=== PATIENT | male | born 1980 | race Caucasian/White ===

== ENCOUNTER 2017-03-17 23:59 | Emergency (ER) | payer OTHER ==
[~2017-03-17] VITALS: Ht 182.9 cm; Wt 74.8 kg
[~2017-03-17 23:59] MED LIST: AMOX-559 PO; ASPI-1471 PO; CEPH500C24 PO; DIPH-740 PO; FAMO-129 PO; IBUP800T37 PO; LEVO5TAB28 PO; MULT-1097 PO; POTA20TA94 PO; PRED20TA6 PO; TRAM-420 PO; [UNRECOGNIZED DRUG - CODE] PO; [UNRECOGNIZED DRUG - REMARK]; vit d
--- NOTE | 2017-03-18 00:04 | ER Report ---
History and Physical Time Seen By MD: 00:04 HPI/ROS CHIEF COMPLAINT: Sharp chest pain HISTORY OF PRESENT ILLNESS: 36-year-old male presents with several hours of sharp chest pain aggravated by deep inspiration. Patient reports he's recovering from a cold for the last week. He's had no high fevers. He has a dry cough. He's taking nutritional supplements. Patient has no shortness of breath or diaphoresis. Patient denies nausea. Patient denies significant past medical history. REVIEW OF SYSTEMS: Respiratory: No cough, no dyspnea. Cardiovascular: As above Gastrointestinal: No vomiting, no abdominal pain. Musculoskeletal: No back pain. Allergies: Coded Allergies: Quinolones (Verified Allergy, Intermediate, CHEST PAIN, 03/18/17) tolnaftate (Verified Allergy, Mild, RASH, 03/18/17) Sulfa (Sulfonamide Antibiotics) (Verified Adverse Reaction, Unknown, CHEST PAIN, 03/18/17) Home Meds Reported Medications Cholecalciferol (Vitamin D3) (VITAMIN D3) 400 Unit Tablet, 800 UNIT PO DAILY 03/18/17 Flaxseed Oil (FLAX SEED OIL) 1,000 Mg Capsule, 1000 MG PO DAILY, CAPSULE 03/18/17 [Wobenzym N] No Conflict Check, 2 TAB PO BID 03/18/17 Discontinued Reported Medications Aspirin (ASPIR 81) 81 Mg Tablet.dr, 81 MG PO QDAY, TAB 08/15/15 Discontinued Scripts Tramadol Hcl (TRAMADOL HCL) 50 Mg Tablet, 50-100 MG PO Q4-6H for PAIN, #20 TAB Prov:JOHN GARCIAE DO 09/24/15 Ibuprofen (IBUPROFEN) 800 Mg Tablet, 1 TAB PO Q8H for PAIN, #60 TAB Prov:JOHN GARCIAE DO 09/24/15 Hx Smoking: No Smoking Status: Never Smoker Hx Substance Use Disorder: No Hx Alcohol Use: No Constitutional Vital Sign - Last 24 Hours 03/18/17 03/18/17 03/18/17 03/18/17 00:05 00:11 00:14 00:44 Temp 97.8 Pulse 103 91 81 Resp 25 14 B/P (MAP) 148/95 (112) 148/95 Pulse Ox 92 100 99 O2 Delivery Room Air 03/18/17 00:59 Pulse 76 Pulse Ox 96 Physical Exam Blood pressure is mildly elevated. Vital signs otherwise unremarkable General Appearance: The patient is alert, has no immediate need for airway protection and no current signs of toxicity. Mild distress HEENT: Pupils equal and round no injection. TMs normal, oropharynx without redness or exudate, mucous. Membranes are moist Respiratory: Chest is non tender, lungs are clear to auscultation.+ Chest wall tenderness Cardiac: regular rate and rhythm Gastrointestinal: Abdomen is soft and non tender, no masses, bowel sounds normal. Musculoskeletal: Neck: Neck is supple and non tender. Extremities have full range of motion and are non tender. No edema, no calf tenderness Skin: No rashes or lesions. DIFFERENTIAL DIAGNOSIS: After history and physical exam differential diagnosis was considered for chest pain including but not limited to myocardial ischemia, pericarditis pulmonary embolus, chest wall pain, pleural inflammation and pulmonary infectious causes. Medical Decision Making Data Points Result Diagram: 03/18/17 0018 03/18/17 0018 Laboratory Hematology Test 03/18/17 00:18 Red Blood Count 4.71 M/uL (4.00-5.60) Mean Corpuscular Volume 89.8 fL (80.0-96.0) Mean Corpuscular Hemoglobin 32.4 pg (26.0-33.0) Mean Corpuscular Hemoglobin Concent 36.1 g/dL (32.0-36.0) Red Cell Distribution Width 12.4 % (11.5-14.5) Mean Platelet Volume 7.4 fL (7.2-11.1) Neutrophils (%) (Auto) 28.7 % (39.4-72.5) Lymphocytes (%) (Auto) 52.9 % (17.6-49.6) Monocytes (%) (Auto) 14.3 % (4.1-12.4) Eosinophils (%) (Auto) 3.1 % (0.4-6.7) Basophils (%) (Auto) 1.0 % (0.3-1.4) Nucleated RBC Relative Count (auto) 0.0 /100WBC Neutrophils # (Auto) 1.5 K/uL (2.0-7.4) Lymphocytes # (Auto) 2.8 K/uL (1.3-3.6) Monocytes # (Auto) 0.8 K/uL (0.3-1.0) Eosinophils # (Auto) 0.2 K/uL (0.0-0.5) Basophils # (Auto) 0.1 K/uL (0.0-0.1) Nucleated RBC Absolute Count (auto) 0.00 K/uL Sodium Level 137 mmol/L (137-145) Potassium Level 3.3 mmol/L (3.5-5.0) Chloride Level 100 mmol/L (98-107) Carbon Dioxide Level 24 mmol/L (22-30) Blood Urea Nitrogen 15 mg/dl (9-21) Creatinine 1.00 mg/dl (0.66-1.25) Glomerular Filtration Rate Calc > 60.0 Random Glucose 89 mg/dl (75-110) Calcium Level 9.5 mg/dl (8.4-10.2) Total Bilirubin 0.5 mg/dl (0.2-1.3) Aspartate Amino Transf (AST/SGOT) 24 U/L (0-35) Alanine Aminotransferase (ALT/SGPT) 33 U/L (0-56) Alkaline Phosphatase 79 U/L (0-126) Troponin I < 0.012 ng/ml Total Protein 7.9 gm/dl (6.3-8.2) Albumin 4.5 g/dl (3.5-5.0) Chemistry Test 03/18/17 00:18 White Blood Count 5.3 k/uL (4.5-11.0) Red Blood Count 4.71 M/uL (4.00-5.60) Hemoglobin 15.2 g/dL (14.0-18.0) Hematocrit 42.3 % (42.0-52.0) Mean Corpuscular Volume 89.8 fL (80.0-96.0) Mean Corpuscular Hemoglobin 32.4 pg (26.0-33.0) Mean Corpuscular Hemoglobin Concent 36.1 g/dL (32.0-36.0) Red Cell Distribution Width 12.4 % (11.5-14.5) Platelet Count 251 K/uL (150-450) Mean Platelet Volume 7.4 fL (7.2-11.1) Neutrophils (%) (Auto) 28.7 % (39.4-72.5) Lymphocytes (%) (Auto) 52.9 % (17.6-49.6) Monocytes (%) (Auto) 14.3 % (4.1-12.4) Eosinophils (%) (Auto) 3.1 % (0.4-6.7) Basophils (%) (Auto) 1.0 % (0.3-1.4) Nucleated RBC Relative Count (auto) 0.0 /100WBC Neutrophils # (Auto) 1.5 K/uL (2.0-7.4) Lymphocytes # (Auto) 2.8 K/uL (1.3-3.6) Monocytes # (Auto) 0.8 K/uL (0.3-1.0) Eosinophils # (Auto) 0.2 K/uL (0.0-0.5) Basophils # (Auto) 0.1 K/uL (0.0-0.1) Nucleated RBC Absolute Count (auto) 0.00 K/uL Glomerular Filtration Rate Calc > 60.0 Calcium Level 9.5 mg/dl (8.4-10.2) Total Bilirubin 0.5 mg/dl (0.2-1.3) Aspartate Amino Transf (AST/SGOT) 24 U/L (0-35) Alanine Aminotransferase (ALT/SGPT) 33 U/L (0-56) Alkaline Phosphatase 79 U/L (0-126) Troponin I < 0.012 ng/ml Total Protein 7.9 gm/dl (6.3-8.2) Albumin 4.5 g/dl (3.5-5.0) EKG/Imaging EKG Interpretation 12 lead EK Rhythm: normal sinus rhythm with sinus arrhythmia [place]: normal QRS: normal ST segments: normal, no evidence of ischemia or dysrhythmia Imaging X-ray: Two-view chest x-ray was obtained. I viewed the images myself on the PACS system. My interpretation of the images is: No infiltrate, no effusion, normal mediastinum. The radiologist interpretation had no clinically significant variation from this interpretation. ED Course/Re-evaluation ED Course Patient was minute to an examination room. H&P was done. The differential diagnoses was considered. On conical examination. Patient describes sharp pleuritic chest pain for several hours. He is recovering from a cold. His EKG is unremarkable. His chest x-ray is unremarkable. Diagnostic laboratory studies are unremarkable. Patient was offered medication for pain Toradol IV. He declined. He is results are discussed with him. He is reassured that this is likely musculoskeletal chest wall pain. He is advised a course of ibuprofen 400-600 mg 3 times daily for the next several days. He is advised to follow-up with his primary care if unimproved in 3-5 days. Decision to Disposition Date: Mar 18, 2017 Decision to Disposition Time: 00:48 Depart Departure Latest Vital Signs Vital Signs Date Time Temp Pulse Resp B/P (MAP) Pulse Ox O2 Delivery O2 Flow Rate FiO2 03/18/17 00:59 76 96 03/18/17 00:14 14 03/18/17 00:11 97.8 148/95 Room Air Impression: Primary Impression: Costochondritis, acute Condition: Improved Disposition: HOME OR SELF-CARE Referrals: TUAN COLLINS DO (PCP) Patient Instructions: Costochondritis (ED) Additional Instructions: Take ibuprofen 200 mg 2-3 tablets 3 times a day with food for 5 days Apply heating pad to your anterior chest wall Follow-up with your primary care if unimproved in 3-5 days AISLINN REYNOLDS DO Mar 18, 2017 00:04
[2017-03-18 00:11] VITALS: BP 148/95
[2017-03-18] MEDS ORDERED: WOBENZYM N PO (00:11)
[2017-03-18] MEDS ORDERED: CHOL400T29 PO (00:11)
[2017-03-18] MEDS ORDERED: FLAX100041 PO (00:11)
[2017-03-18 00:23] LABS: PLATELET COUNT, AUTOMATED 251 K/uL (150-450)
--- NOTE | 2017-03-18 00:28 | EKG ---
[place]AC[place] [facility] [place]IENT NAME: DESTINI OWENS : [id number] MR: [id number] V: [id number] EXAM DATE: ORDERING PHYSICIAN: AISLINN REYNOLDS TECHNOLOGIST: Adán Faust Reason : Blood Pressure : / mmHG Vent. Rate : 084 BPM Atrial Rate : 084 BPM P-R Int : 124 ms QRS Dur : 086 ms QT Int : 368 ms P-R-T Axes : 052 065 070 degrees QTc Int : 434 ms Normal sinus rhythm with sinus arrhythmia Normal ECG When compared with ECG of 15-AUG-2015 04:40, No significant change was found Confirmed by IVAN GONSALVES ([id number]) on 03/18/2017 5:37:34 AM Referred By: Confirmed By:IVAN GONSALVES
--- NOTE | 2017-03-18 00:53 | RADIOLOGY IMAGING REPORT ---
FACILITY: [facility] PATIENT NAME: Pete Moreno : 1980 MR: [id number] V: [id number] EXAM DATE: ORDERING PHYSICIAN: AISLINN REYNOLDS TECHNOLOGIST: Location: [facility] Patient: Pete Moreno : 1980 Visit/Account:[id number] Date of Sevice: 03/18/2017 CHEST PA AND LATERAL 03/18/2017 12:35 AM. INDICATION: Chest pain for 2 hours. COMPARISON: 09/12/2014. FINDINGS: Lungs are well-expanded. The lungs are clear. No pneumothorax or pleural effusion. Pulmo nary vasculature is unremarkable. Heart size is normal. IMPRESSION: No acute cardiopulmonary abnormality. Report Dictated By: Estrada Wilhelm MD at 03/18/2017 12:49 AM Report E-Signed By: Estrada Wilhelm MD at 03/18/2017 12:50 AM WSN:[id number]
== END 2017-03-18 01:13 | disposition home or self-care (01) ==
LOC: ER 03-18 00:13
DX: M94.0 Chondrocostal junction syndrome [Tietze] (principal)
CPT/HCPCS: 71046; 82040; 82247; 82310; 82374; 82435; 82565; 82947; 84075; 84132; 84155; 84295; 84450; 84460; 84484; 84520; 85025; 93005; 99284

== ENCOUNTER → 2017-06-10 | Outpatient (CLI) | payer OTHER ==
[~2017-06-10] MED LIST changes: +CHOL400T29 PO; +FLAX100041 PO; +WOBENZYM N PO
--- NOTE | 2017-06-10 12:17 | RADIOLOGY IMAGING REPORT ---
FACILITY: [facility] PATIENT NAME: Pete Moreno : 1980 MR: [id number] V: [id number] EXAM DATE: ORDERING PHYSICIAN: TUAN COLLINS TECHNOLOGIST: [place] [facility] [place] : 1980 Visit/Account:[id number] Date of Sevice: 06/10/2017 EXAMINATION: Abdominal ultrasound complete HISTORY: Left upper quadrant pain times several months COMPARISON: Gallbladder ultrasound April 29, 2012 FINDINGS: Gallbladder: No stones, wall thickening, pericholecystic fluid or sonographic Richard sign. Liver: Negative. Common duct: Normal measuring 2.9 mm. Pancreas: No gross abnormality identified Spleen: Normal in size and echogenicity measuring 11.4 cm in length. Kidneys: Normal in size and echogenicity, the right measures 10.2 cm in length, and the left 10.2 cm . No hydronephrosis. Resistive index on the right 0.59 and the left 0.63. There is a small [address] upper pole the right kidney Upper abdominal aorta and IVC: Negative. Ascites: None. IMPRESSION: 9 mm cyst upper pole the right kidney otherwise unremarkable abdomen ultrasound Report Dictated By: Stephanie Restrepo MD at 06/10/2017 11:19 AM Report E-Signed By: Stephanie Restrepo MD at 06/10/2017 12:12 PM WSN:[email or web address]
== END ==
LOC: US 01:14
PROVIDERS: ATTEND Family Medicine
DX: N28.1 Cyst of kidney, acquired (principal)
CPT/HCPCS: 76700